=== PATIENT | male | born 1955 | race Caucasian/White ===

== ENCOUNTER 2018-04-22 09:38 | Day surgery (SDC) | payer MEDICAID, SELFPAY ==
--- NOTE | 2018-04-21 15:47 | W.PIPPEYE ---
History of Present Illness Chief Complaint: Progressive decreased vision, left eye Narrative: The patient is a 62-year old male who has previously undergone cataract surgery in the right eye on 06/15/2009. He has uncorrected visual acuity of 20/20 in the right eye. He presented with complaints of progressive decreased vision in his left eye. He notes decreased vision at both distance and near and has significant difficulty with glare from headlights at night. On examination visual acuity was noted to be 20/100 in the left eye in the presence of moderate nuclear cataract. The option of cataract surgery was offered to the patient and he wished to proceed. NOTE: The Chief Complaint, HPI, Past Medical History, Past Surgical History, Family History, Social History, Medications, and complete Ophthalmic Exam with detailed Assessment and Plan have already been documented in the patient's outpatient ophthalmic record and are not covered again in detail here. PFSH Nuclear sclerotic cataract of left eye (Acute) Status post cataract extraction and insertion of intraocular lens of right eye (Chronic 06/15/09) Medical History Nuclear sclerotic cataract of left eye (Acute) Social History Smoking/Tobacco Use Status: Never Surgical History Status post cataract extraction and insertion of intraocular lens of right eye (Chronic 06/15/09) Social History Smoking/Tobacco Use Status: Never Meds Home Medications Medication Instructions Recorded Confirmed Type aspirin [Aspir-Low] 81 mg PO DAILY 04/18/18 04/18/18 History losartan 50 mg PO DAILY 04/18/18 04/18/18 History rosuvastatin [Crestor] 20 mg PO DAILY 04/18/18 04/18/18 History Allergies Allergy/AdvReac Type Severity Reaction Status Date / Time atorvastatin [From Lipitor] AdvReac Intermediate muscle Verified 04/19/18 08:02 weakness lisinopril AdvReac Intermediate cough Verified 04/19/18 08:03 Exam OCULAR EXAM:: Most recent ophthalmic examination reveals uncorrected visual acuity of 20/20 right eye, 20/100 left eye. The left eye can be corrected to 20/40. Pupils equal, round, and reactive without afferent pupillary defect intraocular pressure is 15 OD, 14 OS. Extraocular motility is normal. Slit-lamp examination is significant for pupils dilating to 6 mm OU. Well-positioned PCIOL OD with 1+ posterior capsular opacity. 2+ nuclear cataract is present OS. Dilated funduscopic examination reveals disc cupping of 0.2 OU with good color. The macula's are normal. Vitreous floaters are present OU. The peripheral retina shows some lattice degeneration. BRIGHTNESS ACUITY TESTING (BAT):: Brightness acuity testing of the left eye of is 20/40. Low is 20/100. Medium is 20/200. High is 20/400. Assessment and Plan (1) Nuclear sclerotic cataract of left eye: Current visit: No Status: Acute Assessment: Visually significant cataract, left eye. Plan: Cataract extraction with intraocular lens implantation, left eye Note: NOTE:: The details of the planned surgery, including the risks, indications,limitations,expectations,outcome and possible complications were explained to the patient. The patient understands the complications including, but not limited to: infection, hemorrhage, posterior dislocation of the lens or nuclear fragments which may require the intervention of a vitreoretinal surgeon, possible loss of the eye, or from anesthetic complications. The patient has been made aware of the option of not having surgery, that vision following surgery may not be equal to that prior to surgery, and that the planned surgery may not achieve the intended results. Following this discussion, which the patient appeared to understand, the patient wishes to proceed with cataract surgery with lens implantation of the affected eye to improve and maximize vision.
--- NOTE | 2018-04-21 15:53 | POEE_ITS ---
History of Present Illness Chief Complaint: Progressive decreased vision, left eye Narrative: The patient is a 62-year old male who has previously undergone cataract surgery in the right eye on 06/15/2009. He has uncorrected visual acuity of 20/20 in the right eye. He presented with complaints of progressive decreased vision in his left eye. He notes decreased vision at both distance and near and has significant difficulty with glare from headlights at night. On examination visual acuity was noted to be 20/100 in the left eye in the presence of moderate nuclear cataract. The option of cataract surgery was offered to the patient and he wished to proceed. NOTE: The Chief Complaint, HPI, Past Medical History, Past Surgical History, Family History, Social History, Medications, and complete Ophthalmic Exam with detailed Assessment and Plan have already been documented in the patient's outpatient ophthalmic record and are not covered again in detail here. PFSH Nuclear sclerotic cataract of left eye (Acute) Status post cataract extraction and insertion of intraocular lens of right eye ( Chronic 06/15/09) Medical History Nuclear sclerotic cataract of left eye (Acute) Social History Smoking/Tobacco Use Status: Never Surgical History Status post cataract extraction and insertion of intraocular lens of right eye ( Chronic 06/15/09) Social History Smoking/Tobacco Use Status: Never Meds Home Medications Medication Instructions Recorded Confirmed Type aspirin [Aspir-Low] 81 mg PO DAILY 04/18/18 04/18/18 History losartan 50 mg PO DAILY 04/18/18 04/18/18 History rosuvastatin [Crestor] 20 mg PO DAILY 04/18/18 04/18/18 History Allergies Allergy/AdvReac Type Severity Reaction Status Date / Time atorvastatin [From Lipitor] AdvReac Intermediate muscle Verified 04/19/18 08:02 weakness lisinopril AdvReac Intermediate cough Verified 04/19/18 08:03 Exam OCULAR EXAM:: Most recent ophthalmic examination reveals uncorrected visual acuity of 20/20 right eye, 20/100 left eye. The left eye can be corrected to 20 /40. Pupils equal, round, and reactive without afferent pupillary defect intraocular pressure is 15 OD, 14 OS. Extraocular motility is normal. Slit- lamp examination is significant for pupils dilating to 6 mm OU. Well- positioned PCIOL OD with 1+ posterior capsular opacity. 2+ nuclear cataract is present OS. Dilated funduscopic examination reveals disc cupping of 0.2 OU with good color. The macula's are normal. Vitreous floaters are present OU. The peripheral retina shows some lattice degeneration. BRIGHTNESS ACUITY TESTING (BAT):: Brightness acuity testing of the left eye of is 20/40. Low is 20/100. Medium is 20/200. High is 20/400. Assessment and Plan (1) Nuclear sclerotic cataract of left eye: Current visit: No Status: Acute Assessment: Visually significant cataract, left eye. Plan: Cataract extraction with intraocular lens implantation, left eye Note: NOTE:: The details of the planned surgery, including the risks, indications, limitations,expectations,outcome and possible complications were explained to the patient. The patient understands the complications including, but not limited to: infection, hemorrhage, posterior dislocation of the lens or nuclear fragments which may require the intervention of a vitreoretinal surgeon, possible loss of the eye, or from anesthetic complications. The patient has been made aware of the option of not having surgery, that vision following surgery may not be equal to that prior to surgery, and that the planned surgery may not achieve the intended results. Following this discussion, which the patient appeared to understand, the patient wishes to proceed with cataract surgery with lens implantation of the affected eye to improve and maximize vision.
[2018-04-22 10:08] VITALS: BP 146/103; PULSE 75; RESP 16; TEMP 35.9; O2SAT 95
[2018-04-22] MEDS: Tetracaine 0.5% 4 ML BTL OS ×4 (10:18→11:00)
[2018-04-22] MEDS: Tropicam./Phenyleph. (1/2.5%) 5 ML BTL OS ×3 (10:19→10:25)
[2018-04-22] MEDS: Povidone-Iodine Ophth 30 ML BTL (11:00)
[2018-04-22] MEDS: Lidocaine 2% Jelly 6 ML SYR (11:00)
[2018-04-22] MEDS: Lidocaine 1% Pres-Free 5 ML VIAL (11:11)
[2018-04-22] MEDS: Balanced Salt Soln.-PLUS 500 ML BAG ×2 (11:11→11:29)
--- NOTE | 2018-04-22 11:47 | W.PM.DSUDISC ---
Discharge Plan Discharge Details Reason For Visit: CATARACT OS Attending Provider: Mustapha Haider Primary Care Provider: Jacob Francois Home Meds and New Rx's Prescriptions: No Action losartan 50 mg Tablet 50 mg PO DAILY RF: 0 aspirin [Aspir-Low] 81 mg Tablet,Delayed Release (Dr/Ec) 81 mg PO DAILY RF: 0 rosuvastatin [Crestor] 20 mg Tablet 20 mg PO DAILY RF: 0 Discharge Instructions Stand Alone Forms: Post-op Topical Cataract, Amirah Ogden (DSU) DS: Diagnosis Discharge Diagnosis (1) Nuclear sclerotic cataract of left eye: Status: Resolved (2) Status post cataract extraction and insertion of intraocular lens of left eye: Status: Chronic
--- NOTE | 2018-04-22 11:48 | W.PM.OP ---
Date of service: 04/22/18 Time of Service: 11:48 Operative Note DATE OF PROCEDURE: 04/22/18 PRE-OP DIAGNOSIS: Cataract, left eye POST-OP DIAGNOSIS: same PROCEDURE: Cataract extraction using phacoemulsification with intraocular lens implant, left eye SURGEON: Mustapha Haider ANESTHESIA: MAC and local (sub-tenon's anesthetic infiltration) PATHOLOGY: none sent COMPLICATIONS: None Patient was transported to: same day Patient's condition: stable Implants: Teo and Teo Vision / [employer] Tecnis [id number] Indications: Progressive decreased vision due to cataract, left eye Procedure Description: CATARACT SURGERY OPERATIVE REPORT PREOPERATIVE DIAGNOSIS: Nuclear cataract, left eye, symptomatic POSTOPERATIVE DIAGNOSIS: Same OPERATION: Cataract extraction using phacoemulsification with posterior chamber intraocular lens implant, left eye. IOL: IOL Customer Energy Specialist/Model: J&J Vision / YONATAN Tecnis ZCB00 IOL Power: +20.50 diopters IOL Serial Number: [id number] Optic Diameter: 6.0mm Haptic/Overall Diameter: 13.0mm PHACO INFO: Herson uSpeakurion Vision System with OZil and Active Fluidics Cumulative Dispersed Energy (CDE): 8.34 seconds SURGEON: Mustapha Haider MD, ROSSY ANESTHESIA: Monitored Anesthesia Care (MAC), with local sub-tenon's anesthetic infiltration COMPLICATIONS: None SPECIMENS: None INDICATIONS FOR PROCEDURE: The patient is a 62-year-old male who has previously undergone cataract surgery in his right eye in 2009. He has now developed asymptomatic nuclear cataract in his left eye and desires cataract surgery to improve and maximize his vision. PROCEDURE: The correct surgical eye was identified and marked as the left eye and the pupil was dilated in the preoperative area using mydriatics and cycloplegics. The dilated pupil size was 6.0 mm. Oral sedation was administered in the form of an Imprimis MKO Melt (midazolam 3mg/ketamine 25mg/ondansetron 2mg). The patient was brought to the operating room where cardiopulmonary monitoring was instituted and surgical time-out was performed, confirming the correct operative eye and IOL power. Topical anesthesia was administered and ophthalmic povidone-iodine 5% was instilled into the conjunctival fornices. Lidocaine gel was applied to the cornea and the taran-ocular area was prepped with Betadine 10% solution and draped in the usual sterile fashion for intraocular surgery, including an aperture drape. A Tegaderm transparent film dressing was cut in half and used to cover the lashes and lid margins. Care was taken to sequester the lashes and lid margins under the Tegaderm dressing. A lid speculum was placed between the lids of the operative eye and the James-Ayla operating microscope was maneuvered into position. Jany scissors were then used to make a conjunctival buttonhole approximately 6mm posterior to the limbus in the inferonasal quadrant. Blunt dissection was carried out to expose bare sclera, and a blunt-tipped sub-tenon?s anesthesia cannula was introduced and passed posteriorly along the globe where non-preserved plain lidocaine was injected into posterior sub-Tenon?s space. A sideport knife was used to make a paracentesis port at the 12:00 postion and the anterior chamber was filled with Healon GV. A 2.4mm keratome knife was used to create a half-thickness groove at the limbus and then to construct a three-plane near-clear corneal tunnel extending 2.0mm into clear cornea at the 3:00 position. A flap was raised on the anterior capsule and capsulorhexis forceps were used to complete a continuous curvilinear capsulorhexis of 5.0 mm. Balanced salt solution was then used to perform cortical cleaving hydrodissection and nuclear hydrodelineation until the lens could be freely rotated within the capsular bag. The lens nucleus was then disassembled and removed within the capsular bag and iris plane using phacoemulsification. The phaco machine cassette was changed in the middle of phacoemulsification due to failure of the fluidics management system (FMS). The view through the cornea during phacoemulsification was very hazy. The pupil constricted to 4 mm during phacoemulsification, making visualization difficult. Residual cortical material was removed using the 45-degree angled silicone I/A tip with 0.3mm port. The posterior capsule was carefully polished to remove as much residual lens epithelial cells as safely possible. The capsular bag was then inflated and the anterior chamber deepened with viscoelastic. The lens implant described above was inserted into the capsular bag using the YONATAN [place] Injector. A Kuglen hook was used to dial the IOL into position. Residual viscoelastic was then removed first from posterior to the IOL, then from the anterior chamber using the I/A handpiece. The lens implant was noted to center nicely within the capsular bag. The incisions were stromally hydrated, and the anterior chamber was reformed using BSS. Then 0.4cc of moxifloxacin 1.5mg/ml were injected into the capsular bag and anterior chamber. The incisions were checked with a Weck spear and found to be secure. Several drops of ophthalmic povidone-iodine 5% were then applied to the eye followed by two drops of Imprimis combination moxifloxacin/dexamethasone solution. The drapes were removed and a clear plastic protective eye shield was placed over the eye. The patient was then returned to Same Day Surgery in stable condition.
--- NOTE | 2018-04-22 11:53 | ROE_ITS ---
Date of service: 04/22/18 Time of Service: 11:48 Operative Note DATE OF PROCEDURE: 04/22/18 PRE-OP DIAGNOSIS: Cataract, left eye POST-OP DIAGNOSIS: same PROCEDURE: Cataract extraction using phacoemulsification with intraocular lens implant, left eye SURGEON: Mustapha Haider ANESTHESIA: MAC and local (sub-tenon's anesthetic infiltration) PATHOLOGY: none sent COMPLICATIONS: None Patient was transported to: same day Patient's condition: stable Implants: Teo and Teo Vision / [employer] Opt[employer] Tecnis [id number] Indications: Progressive decreased vision due to cataract, left eye Procedure Description: CATARACT SURGERY OPERATIVE REPORT PREOPERATIVE DIAGNOSIS: Nuclear cataract, left eye, symptomatic POSTOPERATIVE DIAGNOSIS: Same OPERATION: Cataract extraction using phacoemulsification with posterior chamber intraocular lens implant, left eye. IOL: IOL Credit Officer/Model: J&J Vision / YONATAN Tecnis ZCB00 IOL Power: +20.50 diopters IOL Serial Number: [id number] Optic Diameter: 6.0mm Haptic/Overall Diameter: 13.0mm PHACO INFO: Herson LANDBAYurion Vision System with OZil and Active Fluidics Cumulative Dispersed Energy (CDE): 8.34 seconds SURGEON: Mustapha Haider MD, ROSSY ANESTHESIA: Monitored Anesthesia Care (MAC), with local sub-tenon's anesthetic infiltration COMPLICATIONS: None SPECIMENS: None INDICATIONS FOR PROCEDURE: The patient is a 62-year-old male who has previously undergone cataract surgery in his right eye in 2009. He has now developed asymptomatic nuclear cataract in his left eye and desires cataract surgery to improve and maximize his vision. PROCEDURE: The correct surgical eye was identified and marked as the left eye and the pupil was dilated in the preoperative area using mydriatics and cycloplegics. The dilated pupil size was 6.0 mm. Oral sedation was administered in the form of an Imprimis MKO Melt (midazolam 3mg/ketamine 25mg/ ondansetron 2mg). The patient was brought to the operating room where cardiopulmonary monitoring was instituted and surgical time-out was performed, confirming the correct operative eye and IOL power. Topical anesthesia was administered and ophthalmic povidone-iodine 5% was instilled into the conjunctival fornices. Lidocaine gel was applied to the cornea and the taran-ocular area was prepped with Betadine 10% solution and draped in the usual sterile fashion for intraocular surgery, including an aperture drape. A Tegaderm transparent film dressing was cut in half and used to cover the lashes and lid margins. Care was taken to sequester the lashes and lid margins under the Tegaderm dressing. A lid speculum was placed between the lids of the operative eye and the James-Ayla operating microscope was maneuvered into position. Jany scissors were then used to make a conjunctival buttonhole approximately 6mm posterior to the limbus in the inferonasal quadrant. Blunt dissection was carried out to expose bare sclera, and a blunt-tipped sub-tenon? s anesthesia cannula was introduced and passed posteriorly along the globe where non-preserved plain lidocaine was injected into posterior sub-Tenon?s space. A sideport knife was used to make a paracentesis port at the 12:00 postion and the anterior chamber was filled with Healon GV. A 2.4mm keratome knife was used to create a half-thickness groove at the limbus and then to construct a three-plane near-clear corneal tunnel extending 2.0mm into clear cornea at the 3:00 position. A flap was raised on the anterior capsule and capsulorhexis forceps were used to complete a continuous curvilinear capsulorhexis of 5.0 mm. Balanced salt solution was then used to perform cortical cleaving hydrodissection and nuclear hydrodelineation until the lens could be freely rotated within the capsular bag. The lens nucleus was then disassembled and removed within the capsular bag and iris plane using phacoemulsification. The phaco machine cassette was changed in the middle of phacoemulsification due to failure of the fluidics management system (FMS). The view through the cornea during phacoemulsification was very hazy. The pupil constricted to 4 mm during phacoemulsification, making visualization difficult. Residual cortical material was removed using the 45-degree angled silicone I/A tip with 0.3mm port. The posterior capsule was carefully polished to remove as much residual lens epithelial cells as safely possible. The capsular bag was then inflated and the anterior chamber deepened with viscoelastic. The lens implant described above was inserted into the capsular bag using the YONATAN [place] Injector. A Kuglen hook was used to dial the IOL into position. Residual viscoelastic was then removed first from posterior to the IOL, then from the anterior chamber using the I/A handpiece. The lens implant was noted to center nicely within the capsular bag. The incisions were stromally hydrated , and the anterior chamber was reformed using BSS. Then 0.4cc of moxifloxacin 1.5mg/ml were injected into the capsular bag and anterior chamber. The incisions were checked with a Weck spear and found to be secure. Several drops of ophthalmic povidone-iodine 5% were then applied to the eye followed by two drops of Imprimis combination moxifloxacin/dexamethasone solution. The drapes were removed and a clear plastic protective eye shield was placed over the eye. The patient was then returned to Same Day Surgery in stable condition.
[2018-04-22 12:00] VITALS: BP 133/81; PULSE 71; RESP 18; TEMP 37.2; O2SAT 94
== END 2018-04-22 12:15 | disposition home or self-care (01) ==
PROVIDERS: PCP Family Medicine; Visit Provider Ophthalmology
PROC: (CPT 66984; principal; 2018-04-22 11:45)
DX: H25.12 Age-related nuclear cataract, left eye (principal); I10 Essential (primary) hypertension
CPT/HCPCS: 66984; V2632

== ENCOUNTER 2018-10-16 09:08 | Outpatient (REF) | payer MEDICARE, MEDICAID, SELFPAY ==
[2018-10-16 22:44] LABS: ALT 41 U/L (12-78); AST 29 U/L (15-37); Alkaline Phosphatase 116 U/L (46-116); BUN 25 mg/dL (7-18); Bilirubin, Total 0.8 mg/dL (0.2-1.0); CREATININE 0.93 mg/dL (0.70-1.30); Calcium 9.2 mg/dL (8.5-10.1); Chloride 103 mmol/L (98-107); Cholesterol 221 mg/dL (50-200); Glucose 94 mg/dL (70-100); HDL Cholesterol 71 mg/dL (40-60); LDL CHOLESTEROL 125 mg/dL (<100); Potassium 5.1 mmol/L (3.5-5.1); Sodium 139 mmol/L (136-145); Total Protein 7.3 g/dL (6.4-8.2); Triglyceride 75 mg/dL (30-150)
[2018-10-16 23:14] LABS: Hemoglobin A1C 5.9 % (4.5-6.2)
[2018-10-18 08:48] LABS: PSA, Screening 0.5 ng/ml (0-4.5)
== END 2018-10-16 09:28 ==
LOC: NCHCN 09:08
PROVIDERS: PCP Family Medicine; Visit Provider Family Medicine
DX: E78.5 Hyperlipidemia, unspecified (principal); R73.01 Impaired fasting glucose; Z12.5 Encounter for screening for malignant neoplasm of prostate; Z00.00 Encounter for general adult medical examination without abnormal findings
CPT/HCPCS: 80053; 80061; 83721; 84153; 83036

== ENCOUNTER 2019-01-09 15:31 | Outpatient (REF) | payer MEDICARE, MEDICAID, SELFPAY ==
[2019-01-13 11:16] LABS: Lyme Ab w Rflx to Lyme Confirm Negative
[2019-01-13 17:29] LABS: Anaplasma phagocytophilum Negative (Negative); B. miyamotoi PCR Negative (Negative); Babesia divergens/MO-1 Negative (Negative); Babesia duncani Negative (Negative); Babesia microti Negative (Negative); Ehrlichia chaffeensis Negative (Negative); Ehrlichia ewingii/canis Negative (Negative); Ehrlichia muris eauclairensis Negative (Negative)
== END 2019-01-09 15:51 ==
LOC: NCHCN 15:31
PROVIDERS: PCP Family Medicine; Visit Provider Nurse Practitioner Family
DX: M25.569 Pain in unspecified knee (principal)
CPT/HCPCS: 87798; 86618

== ENCOUNTER 2020-01-13 10:12 | Outpatient (REF) | payer OTHER, MEDICAID, SELFPAY ==
[2020-01-13 21:32] LABS: ALT 40 U/L (16-63); AST 28 U/L (15-37); Albumin 4.1 g/dL (3.4-5.0); Alkaline Phosphatase 99 U/L (46-116); Anion Gap 3.5 mmol/L (3-11); BUN 26 mg/dL (7-18); Bilirubin, Total 0.8 mg/dL (0.2-1.0); CO2 28.5 mmol/L (21.0-32.0); CREATININE 0.88 mg/dL (0.70-1.30); Calcium 8.8 mg/dL (8.5-10.1); Calculated LDL 123 mg/dL (<100); Chloride 107 mmol/L (98-107); Cholesterol 209 mg/dL (<200); Glucose 91 mg/dL (74-106); HDL Cholesterol 76 mg/dL (40-60); Potassium 4.6 mmol/L (3.5-5.1); Sodium 139 mmol/L (136-145); Total Protein 7.1 g/dL (6.4-8.2); Triglyceride 52 mg/dL (<150)
[2020-01-14 10:14] LABS: Hemoglobin A1C 5.8 % (3.8-5.6)
[2020-01-14 17:43] LABS: PSA, Screening 0.5 ng/mL (0.0-4.5)
== END 2020-01-13 10:32 ==
LOC: NCHCN 10:12
PROVIDERS: PCP Family Medicine; Visit Provider Family Medicine
DX: R73.03 Prediabetes (principal); I10 Essential (primary) hypertension; E78.5 Hyperlipidemia, unspecified; Z12.5 Encounter for screening for malignant neoplasm of prostate
CPT/HCPCS: 80053; 80061; 84153; 83036

== ENCOUNTER 2020-03-02 08:51 | Outpatient (REF) | payer OTHER, SELFPAY ==
[2020-03-02 22:44] LABS: ALT 39 U/L (16-63); AST 24 U/L (15-37); Albumin 4.1 g/dL (3.4-5.0); Alkaline Phosphatase 96 U/L (46-116); Bilirubin, Total 0.6 mg/dL (0.2-1.0); Calculated LDL 125 mg/dL (<100); Cholesterol 215 mg/dL (<200); HDL Cholesterol 73 mg/dL (40-60); Total Protein 7.3 g/dL (6.4-8.2); Triglyceride 86 mg/dL (<150)
[2020-03-02 23:17] LABS: Bilirubin, Direct 0.15 mg/dL (0.00-0.20)
== END 2020-03-02 09:11 ==
LOC: NCHCN 08:51
PROVIDERS: PCP Family Medicine; Visit Provider Family Medicine
DX: E78.5 Hyperlipidemia, unspecified (principal); B35.1 Tinea unguium
CPT/HCPCS: 80061; 80076

== ENCOUNTER 2020-06-22 15:25 | Outpatient (REF) | payer OTHER, SELFPAY ==
[2020-06-22 13:22] LABS: Calculated LDL 125 mg/dL (<100); Cholesterol 206 mg/dL (<200); HDL Cholesterol 66 mg/dL (40-60); Triglyceride 76 mg/dL (<150)
== END 2020-06-22 15:26 | disposition home or self-care (01) ==
LOC: NCHCN 15:25
PROVIDERS: PCP Family Medicine; Visit Provider Family Medicine
DX: E78.5 Hyperlipidemia, unspecified (principal)
CPT/HCPCS: 80061

== ENCOUNTER 2020-09-01 07:43 | Outpatient (REF) | payer OTHER, SELFPAY ==
[2020-09-01 13:40] LABS: Calculated LDL 105 mg/dL (<100); Cholesterol 187 mg/dL (<200); HDL Cholesterol 68 mg/dL (40-60); Triglyceride 71 mg/dL (<150)
== END 2020-09-01 07:44 | disposition home or self-care (01) ==
LOC: NCHCN 07:43
PROVIDERS: PCP Family Medicine; Visit Provider Family Medicine
DX: E78.5 Hyperlipidemia, unspecified (principal); Z51.81 Encounter for therapeutic drug level monitoring
CPT/HCPCS: 80061

== ENCOUNTER 2021-01-11 15:32 | Outpatient (REF) | payer OTHER, SELFPAY ==
[2021-01-11 17:07] LABS: Hemoglobin A1C 6.1 % (<5.7)
[2021-01-11 17:11] LABS: ALT 36 U/L (16-63); AST 25 U/L (15-37); Alkaline Phosphatase 98 U/L (46-116); Anion Gap 7.2 mmol/L (3-11); BUN 24 mg/dL (7-18); Bilirubin, Total 0.7 mg/dL (0.2-1.0); CO2 27.8 mmol/L (21.0-32.0); CREATININE 0.9 mg/dL (0.70-1.30); Calcium 8.8 mg/dL (8.5-10.1); Chloride 106 mmol/L (98-107); Glucose 90 mg/dL (74-106); Potassium 4.8 mmol/L (3.5-5.1); Sodium 141 mmol/L (136-145); Total Protein 7.2 g/dL (6.4-8.2)
[2021-01-12 17:58] LABS: PSA, Screening 0.7 ng/mL (0.0-4.5)
== END 2021-01-11 15:33 | disposition home or self-care (01) ==
LOC: NCHCN 15:32
PROVIDERS: PCP Family Medicine; Visit Provider Family Medicine
DX: R73.03 Prediabetes (principal); Z12.5 Encounter for screening for malignant neoplasm of prostate; Z51.81 Encounter for therapeutic drug level monitoring
CPT/HCPCS: 80053; 84153; 83036

== ENCOUNTER 2022-01-20 08:14 | Outpatient (REF) | payer OTHER, SELFPAY ==
[2022-01-20 21:23] LABS: Hemoglobin A1C 5.9 % (<5.7)
[2022-01-20 21:26] LABS: ALT 32 U/L (16-63); AST 23 U/L (15-37); Albumin 4.2 g/dL (3.4-5.0); Alkaline Phosphatase 105 U/L (46-116); BUN 31 mg/dL (7-18); Bilirubin, Total 0.8 mg/dL (0.2-1.0); CREATININE 0.9 mg/dL (0.70-1.30); Calculated LDL 127 mg/dL (<100); Chloride 105 mmol/L (98-107); Cholesterol 214 mg/dL (<200); Estimated GFR 93.03 (mL/min/1.73m2); Glucose 100 mg/dL (74-106); HDL Cholesterol 72 mg/dL (40-60); Potassium 4.9 mmol/L (3.5-5.1); Sodium 141 mmol/L (136-145); Total Protein 7.5 g/dL (6.4-8.2); Triglyceride 78 mg/dL (<150)
[2022-01-23 10:18] LABS: PSA, Screening 0.6 ng/mL (<=4.5)
== END 2022-01-20 08:15 | disposition home or self-care (01) ==
LOC: NCHCN 08:14
PROVIDERS: PCP Family Medicine; Visit Provider Family Medicine
DX: R73.03 Prediabetes (principal); E78.5 Hyperlipidemia, unspecified; Z12.5 Encounter for screening for malignant neoplasm of prostate; I10 Essential (primary) hypertension
CPT/HCPCS: 80053; 80061; 84153; 83036

== ENCOUNTER 2022-03-08 17:04 | Outpatient (REF) | payer MEDICARE, SELFPAY ==
[2022-03-08 21:13] LABS: Anion Gap 8.4 mmol/L (3-11); BUN 22 mg/dL (7-18); CO2 25.6 mmol/L (21.0-32.0); CREATININE 0.9 mg/dL (0.70-1.30); Chloride 103 mmol/L (98-107); Estimated GFR 93.03 (mL/min/1.73m2); Glucose 83 mg/dL (74-106); Potassium 4.3 mmol/L (3.5-5.1); Sodium 137 mmol/L (136-145)
== END 2022-03-08 17:05 | disposition home or self-care (01) ==
LOC: NCHCN 17:04
PROVIDERS: PCP Family Medicine; Visit Provider Family Medicine
DX: R25.2 Cramp and spasm (principal)
CPT/HCPCS: 80048

== ENCOUNTER 2022-03-24 15:12 | Outpatient (REF) | payer MEDICARE, SELFPAY ==
[2022-03-24 16:12] LABS: Anion Gap 6.3 mmol/L (3-11); BUN 30 mg/dL (7-18); CO2 28.7 mmol/L (21.0-32.0); Calcium 9.2 mg/dL (8.5-10.1); Chloride 105 mmol/L (98-107); Estimated GFR 81.98 (mL/min/1.73m2); Glucose 99 mg/dL (74-106); Potassium 4.4 mmol/L (3.5-5.1); Sodium 140 mmol/L (136-145)
== END 2022-03-24 15:13 | disposition home or self-care (01) ==
LOC: NCHCN 15:12
PROVIDERS: PCP Family Medicine; Visit Provider Family Medicine
DX: I10 Essential (primary) hypertension (principal)
CPT/HCPCS: 80048

== ENCOUNTER 2022-12-26 08:45 | Outpatient (REF) | payer MEDICARE, SELFPAY ==
--- OUTSIDE RECORDS SUMMARY | 2022-12-26 08:48 | XMS_ITS | CCD ---
Author Name Unknown Address [address] [place] [address] [phone] Organization Unknown Address [address] [place] [address] [phone] Care Team Providers Care Fence Post Driver Name Role Phone STALIN FALL Attending Physician [phone] SUKHJINDER FISHER Er Physician 6 [phone] MOLLY Morgan Registered Nurse [phone] Vital Signs Vital Sign Value Unit Date/Time Recent/Initial ? BMI (Body Mass Index) 27.89 kg/m^2 12/02/2021 10: 00 Initial VS Weight Measured 200 lbs 12/02/2021 10:00 Ini tial VS Height 71 in 12/02/2021 10:00 Initial VS BSA (Body Surface Area) 2.13 m^2 12/02/2021 1 0:00 Initial VS BP Systolic 153 mmHg 12/02/2021 10:00 Initial VS BP Diastolic 98 mmHg 12/02/2021 10:00 Initia l VS Respiratory Rate 19 bpm 12/02/2021 10:00 In itial VS Heart Rate 66 bpm 12/02/2021 10:00 Initial VS O2 % BldC Oximetry 98 % 12/02/2021 10:00 Initial VS Body Temperature 35.5 degrees 12/02/2021 10:00 In itial VS Allergies Allergy Code Allergy Type Reaction Status LISINOPRIL 94783 Drug allergy COUGH Active CEDAR SAWDUST {Clinical monitoring unavailable} 0 Drug allergy COUGHING Active Procedures Unknown or Not Available. History of Immunizations Unknown or Not Available. Problems Problem Code Start Date Resolved Date Status Cataract [id number] 12/02/2021 Resolved Results Unknown or Not Available. Active Medications Unknown or Not Available. Medications Administered During Visit Unknown or Not Available. Encounters Encounter Diagnosis Diagnosis Code Start Date Closed fracture sacrum [id number] Social History Smoking Status Code Start Date End Date Never smoker [id number] Patient Decision Aids Unknown or Not Available. Discharge Instructions You were admitted to [facility] on 12/02/2021 09:37 with a principal diagnosis of Unspecified fracture of sacrum, initial encounter for closed fracture You were discharged from [facility] on 12/02/2021 12:48 Should you have any questions prior to discharge, please contact a member of your healthcare team. If you have left the hospital and have any questions, please contact your primary care physician. Chief Complaint and Reason For Visit Chief Complaint Date of Onset FELL OFF LADDER ONTO CEMENT Function Status Unknown or Not Available. Plan of Care Unknown or Not Available. Referral/Transition of Care Unknown or Not Available.
--- OUTSIDE RECORDS SUMMARY | 2022-12-26 08:48 | XMS_ITS | CCD ---
Author Name Unknown Address [address] [place] [address] [phone] Organization Unknown Address [address] [place] [address] [phone] Care Team Providers Care Telecommunications Network Planner Name Role Phone EREN ROSARIO Attending Physician [phone] Vital Signs Unknown or Not Available. Allergies Allergy Code Allergy Type Reaction Status LISINOPRIL 49753 Drug allergy COUGH Active CEDAR SAWDUST {Clinical monitoring unavailable} 0 Drug allergy COUGHING Active Procedures Unknown or Not Available. History of Immunizations Unknown or Not Available. Problems Unknown or Not Available. Results Unknown or Not Available. Active Medications Unknown or Not Available. Medications Administered During Visit Unknown or Not Available. Encounters Encounter Diagnosis Diagnosis Code Start Date Complete rotator cuff tear o r rupture of right shoulder, not specified as traumatic [id number] 01/11/2022 Social History Smoking Status Code Start Date End Date Never smoker [id number] Patient Decision Aids Unknown or Not Available. Discharge Instructions You were admitted to [facility] on 01/11/2022 10:43 with a principal diagnosis of Complete rotator cuff tear or rupture of right shoulder, not specified as traumatic You were discharged from [facility] on 01/11/2022 10:43 Should you have any questions prior to discharge, please contact a member of your healthcare team. If you have left the hospital and have any questions, please contact your primary care physician. Chief Complaint and Reason For Visit Chief Complaint Date of Onset SHOULDER JOINT Function Status Unknown or Not Available. Plan of Care Unknown or Not Available. Referral/Transition of Care Unknown or Not Available.
--- OUTSIDE RECORDS SUMMARY | 2022-12-26 08:48 | XMS_ITS | CCD ---
Author Name Unknown Address [address] [place] [address] [id number] Organization Unknown Address [address] [place], [place] [id number] Care Team Providers Care Still Worker Helper Name Role Phone ELINOR DEY Attending Physician [phone] ELINOR DEY Rounding (Secondary) Physician [phone] Vital Signs Unknown or Not Available. Allergies Allergy Code Allergy Type Reaction Status LISINOPRIL 47041 Drug allergy COUGH Active CEDAR SAWDUST {Clinical monitoring unavailable} 0 Drug allergy COUGHING Active Procedures Unknown or Not Available. History of Immunizations Unknown or Not Available. Problems Unknown or Not Available. Results Unknown or Not Available. Active Medications Unknown or Not Available. Medications Administered During Visit Unknown or Not Available. Encounters Encounter Diagnosis Diagnosis Code Start Date Postprocedural state finding [id number] Social History Smoking Status Code Start Date End Date Never smoker [id number] Patient Decision Aids Unknown or Not Available. Discharge Instructions You were admitted to [facility] on 08/14/2022 13:24 with a principal diagnosis of Other specified postprocedural states You were discharged from [facility] on 08/14/2022 00:00 Should you have any questions prior to discharge, please contact a member of your healthcare team. If you have left the hospital and have any questions, please contact your primary care physician. Chief Complaint and Reason For Visit Unknown or Not Available. Function Status Unknown or Not Available. Plan of Care Unknown or Not Available. Referral/Transition of Care Unknown or Not Available.
--- OUTSIDE RECORDS SUMMARY | 2022-12-26 08:48 | XMS_ITS | CCD ---
Author Name Unknown Address [address] [place] [address] [phone] Organization Unknown Address [address] [place] [address] [phone] Care Team Providers Care Radiologic Electronic Specialist Name Role Phone AVI CULLEN Attending Physician [phone] AVI CULLEN Rounding (Secondary) Physician [phone] Vital Signs Unknown or Not Available. Allergies Allergy Code Allergy Type Reaction Status LISINOPRIL 94139 Drug allergy COUGH Active CEDAR SAWDUST {Clinical monitoring unavailable} 0 Drug allergy COUGHING Active Procedures Unknown or Not Available. History of Immunizations Unknown or Not Available. Problems Unknown or Not Available. Results Unknown or Not Available. Active Medications Unknown or Not Available. Medications Administered During Visit Unknown or Not Available. Encounters Encounter Diagnosis Diagnosis Code Start Date Full thickness rotator cuff tear [id number] 02/06/2022 Social History Smoking Status Code Start Date End Date Never smoker [id number] Patient Decision Aids Unknown or Not Available. Discharge Instructions You were admitted to [facility] on 02/06/2022 15:24 with a principal diagnosis of Complete rotator cuff tear or rupture of right shoulder, not specified as traumatic You were discharged from [facility] on 02/06/2022 00:00 Should you have any questions prior [...]
--- OUTSIDE RECORDS SUMMARY | 2022-12-26 08:48 | XMS_ITS | CCD ---
Author Name Unknown Address [address] [place] [address] [id number] Organization Unknown Address [address] [place] [address] [phone] Care Team Providers Care Fibre Technologist Name Role Phone AVI CULLEN Attending Physician [phone] Vital Signs Unknown or Not Available. Allergies Allergy Code Allergy Type Reaction Status LISINOPRIL 61359 Drug allergy COUGH Active CEDAR SAWDUST {Clinical monitoring unavailable} 0 Drug allergy COUGHING Active Procedures Unknown or Not Available. History of Immunizations Unknown or Not Available. Problems Unknown or Not Available. Results Unknown or Not Available. Active Medications Unknown or Not Available. Medications Administered During Visit Unknown or Not Available. Encounters Unknown or Not Available. Social History Smoking Status Code Start Date End Date Never smoker [id number] Patient Decision Aids Unknown or Not Available. Discharge Instructions You were admitted to [facility] on 03/29/2022 07:30 You were discharged from [facility] on 03/29/2022 07:30 Should you have any questions prior to [...]
--- OUTSIDE RECORDS SUMMARY | 2022-12-26 08:49 | XMS_ITS | CCD ---
Author Name Unknown Address [address] [place] [address] [phone] Organization Unknown Address [address] [place] [address] [phone] Care Team Providers Care Advanced Seal Delivery System Name Role Phone AVI CULLEN Attending Physician [phone] Vital Signs Unknown or Not Available. Allergies Allergy Code Allergy Type Reaction Status LISINOPRIL 18620 Drug allergy COUGH Active CEDAR SAWDUST {Clinical monitoring unavailable} 0 Drug allergy COUGHING Active Procedures Unknown or Not Available. History of Immunizations Unknown or Not Available. Problems Unknown or Not Available. Results Unknown or Not Available. Active Medications Unknown or Not Available. Medications Administered During Visit Unknown or Not Available. Encounters Encounter Diagnosis Diagnosis Code Start Date Encounter for other orthopedic aftercare [id number] 05/08/2022 Social History Smoking Status Code Start Date End Date Never smoker [id number] Patient Decision Aids Unknown or Not Available. Discharge Instructions You were admitted to [facility] on 05/08/2022 14:22 with a principal diagnosis of Encounter for other orthopedic aftercare You were discharged from [facility] on 07/24/2022 11:04 Should you have any questions prior to [...]
--- OUTSIDE RECORDS SUMMARY | 2022-12-26 08:49 | XMS_ITS | CCD ---
Author Name Unknown Address [address] [place] [address] [id number] Organization Unknown Address [address] [place], [place] [phone] Care Team Providers Care Cup Machine Operator Name Role Phone AVI CULLEN Attending Physician [phone] Vital Signs Vital Sign Value Unit Date/Time Recent/Initial ? BMI (Body Mass Index) 29.56 kg/m^2 04/05/2022 10: 34 Initial VS Weight Measured 206 lbs 04/05/2022 10:34 Ini tial VS Height 70 in 04/05/2022 10:34 Initial VS BSA (Body Surface Area) 2.15 m^2 04/05/2022 1 0:34 Initial VS BP Systolic 120 mmHg 04/19/2022 16:45 Initial VS BP Diastolic 72 mmHg 04/19/2022 16:45 Initia l VS Respiratory Rate 15 bpm 04/19/2022 16:45 In itial VS Heart Rate 89 bpm 04/19/2022 16:45 Initial VS O2 % BldC Oximetry 94 % 04/19/2022 16:45 Initial VS Body Temperature 36 degrees 04/19/2022 16:45 In itial VS Allergies Allergy Code Allergy Type Reaction Status LISINOPRIL 07307 Drug allergy COUGH Active CEDAR SAWDUST {Clinical monitoring unavailable} 0 Drug allergy COUGHING Active Procedures Procedure Code Procedure Type Date Arthroscopy, Shoulder, Surgi waqar; w/Rotator Cuff Repair 83388 CPT 04/19/2022 Tenodesis, Long Tendon, Biceps 47833 CPT 04/19/2022 Arthroscopy, Shoulder, Surgi waqar; Decompression, Subacromial Space w/Partial Acromioplasty 58189 CPT 04/19/2022 Injection Anesthetic Agent a nd/or Steroid; Brachial Plexus 23969 CPT 04/19/2022 Anesthesia, Open/Surg Arthro scopic Proc, Humeral Head & Neck, Sternoclav/AC/Shoulder Jt; NOS 53209 CPT 1 06/19/2021 History of Immunizations Unknown or Not Available. Problems Unknown or Not Available. Results BASIC METABOLIC PANEL (BMP) - Collect Date/Time: 04/19/2022 10:02 Test Name Code Test Result Test Units Test Ref Rang e GLUCOSE 2345-7 104 mg/dL L=70 H=116 BUN 3094-0 24 mg/dL L=6 H=25 CREATININE 2160-0 0.94 mg/dL L=0.67 H=1.17 SODIUM SERUM 2951-2 137 mmol/L L=136 H=145 POTASSIUM SERUM 2823-3 4.9 mmol/L L=3.4 H=5 .2 CHLORIDE SERUM 2075-0 103 mmol/L L=96 H=110 CARBON DIOXIDE (CO2) 2028-9 30 mmol/L L=22 H=34 ANION GAP 04294-8 4.4 mmol/L CALCIUM SERUM 87184-8 8.9 mg/dL L=8.2 H=10. 2 AGE 66 years eGFR (non-Afr.Amer.) 61459-4 80 mL/min eGFR (Afr-Malawian) 75786-8 97 mL/min CBC W/ DIFFERENTIAL* - [facility] ct Date/Time: 04/19/2022 10:02 Test Name Code Test Result Test Units Test Ref Rang e WBC 6690-2 5.85 th/cmm L=5.00 H=10.00 NEUT % 69.4 % L=40.0 H=80.0 LYMPH % 19.1 % L=10.0 H=50.0 MONO % 77222-7 8.7 % L=2.0 H=12.0 EOS % 2.1 % L=0.0 H=8.0 BASO % 0.5 % L=0.0 H=3.0 IG % 2514-8 0.2 % L=0.0 H=1.1 NRBC % 71807-4 0.0 % L=0.0 H=0.0 NEUT abs count 751-8 4.1 th/cmm L=1.6 H=8. 4 LYMPH abs count 731-0 1.1 th/cmm L=1.5 H=4 .0 MONO abs count 742-7 0.5 th/cmm L=0.2 H=1. 0 EOS abs count 711-2 0.1 th/cmm L=0.0 H=0.5 BASO abs count 704-7 0.0 th/cmm L=0.0 H=0. 2 IG abs count 85428-3 0.0 th/cmm L=0.0 H=0.1 NRBC abs count 80401-7 0.0 mil/cmm L=0.0 H=0. 0 RBC 789-8 4.95 mil/cmm L=4.30 H=6.20 HEMOGLOBIN 718-7 15.4 gm/dL L=13.0 H=17.0 HEMATOCRIT 4544-3 46 % L=45 H=52 MCV 787-2 93 fL L=82 H=92 MCH 785-6 31.1 pg L=27.0 H=31.0 MCHC 786-4 33.6 % L=32.0 H=36.0 RDW-SD 788-0 44.6 fL L=39.0 H=49.0 PLATELET COUNT 777-3 265 th/cmm L=150 H=45 0 Active Medications Medications Administered During Visit Medication Dose Units Frequency Route Date/Time of Last Dose LACTATED RINGERS 1000ML 1000 ML X1 04/19/2022 10:00 PREGABALIN CAPSULE: 50MG 100 MG X1 PO 04/19/2022 09:58 CELECOXIB CAPSULE: 100MG 200 MG X1 PO 04/19/2022 09:58 MIDAZOLAM INJ SDV: 2MG/2ML 2 MG X1 IVP 04/19/2022 11:57 Encounters Encounter Diagnosis Diagnosis Code Start Date Strain of muscle(s) and tend on(s) of the rotator cuff of right shoulder, initial encounter [id number] 04/19/2022 Social History Smoking Status Code Start Date End Date Never smoker [id number] Patient Decision Aids Unknown or Not Available. Discharge Instructions You were admitted to [facility] on 04/19/2022 09:21 with a principal diagnosis of Strain of muscle(s) and tendon(s) of the rotator cuff of right shoulder, initial encounter You had the following procedures done:Arthroscopy, Shoulder, Surgical; w/Rotator Cuff RepairTenodesis, Long Tendon, BicepsArthroscopy, Shoulder, Surgical; Decompression, Subacromial Space w/Partial AcromioplastyInjection Anesthetic Agent and/or Steroid; Brachial PlexusAnesthesia, Open/Surg Arthroscopic Proc, Humeral Head & Neck, Sternoclav/AC/Shoulder Jt; NOS You had the following tests done:BASIC METABOLIC PANEL (BMP)CBC W/ DIFFERENTIAL* You were discharged from [facility] on 04/19/2022 17:50 Should you have any questions prior to discharge, please contact a member of your healthcare team. If you have left the hospital and have any questions, please contact your primary care physician. Chief Complaint and Reason For Visit Chief Complaint Date of Onset RIGHT SHOULDER RTC REPAIR / BICEPS TENOD ESIS 120MIN OP Function Status Unknown or Not Available. Plan of Care Unknown or Not Available. Referral/Transition of Care Unknown or Not Available.
--- OUTSIDE RECORDS SUMMARY | 2022-12-26 08:49 | XMS_ITS | CCD ---
Author Name Unknown Address [address] [place] [address] [phone] Organization Unknown Address [address] [place] [address] [phone] Care Team Providers Care Pasteurizer Name Role Phone AVI CULLEN Attending Physician [phone] Vital Signs Unknown or Not Available. Allergies Allergy Code Allergy Type Reaction Status LISINOPRIL 06181 Drug allergy COUGH Active CEDAR SAWDUST {Clinical monitoring unavailable} 0 Drug allergy COUGHING Active Procedures Unknown or Not Available. History of Immunizations Unknown or Not Available. Problems Unknown or Not Available. Results [facility] ELISA AMBROSIOONIX* - Russ ect Date/Time: 04/17/2022 09:38 Test Name Code Test Result Test Units Test Ref Rang e Tier- 69497-0 PRE-OP N/A SARS COV2 RNA: 98298-7 NEGATIVE N/A REFERENCE RANGE: NEGAT Active Medications Unknown or Not Available. Medications Administered During Visit Unknown or Not Available. Encounters Encounter Diagnosis Diagnosis Code Start Date Pre-surgery testing [id number] 04/17/2022 Social History Smoking Status Code Start Date End Date Never smoker [id number] Patient Decision Aids Unknown or Not Available. Discharge Instructions You were admitted to [facility] on 04/17/2022 18:29 with a principal diagnosis of Encounter for preprocedural laboratory examination You had the following tests done:MILIND COVID RHEONIX* You were discharged from [facility] on 04/17/2022 18:29 Should you have any questions prior to [...]
--- OUTSIDE RECORDS SUMMARY | 2022-12-26 08:49 | XMS_ITS | CCD ---
Author Name Unknown Address [address] [place] [address] [id number] Organization Unknown Address [address] [place] [address] [phone] Care Team Providers Care Control Room Helper Name Role Phone AVI CULLEN Attending Physician [phone] AVI CULLEN Rounding (Secondary) Physician [phone] Vital Signs Unknown or Not Available. Allergies Allergy Code Allergy Type Reaction Status LISINOPRIL 29700 Drug allergy COUGH Active CEDAR SAWDUST {Clinical monitoring unavailable} 0 Drug allergy COUGHING Active Procedures Unknown or Not Available. History of Immunizations Unknown or Not Available. Problems Unknown or Not Available. Results Unknown or Not Available. Active Medications Unknown or Not Available. Medications Administered During Visit Unknown or Not Available. Encounters Encounter Diagnosis Diagnosis Code Start Date Removal of suture [id number] 04/25/2022 Social History Smoking Status Code Start Date End Date Never smoker 051556906 Patient Decision Aids Unknown or Not Available. Discharge Instructions You were admitted to [facility] on 04/25/2022 13:04 with a principal diagnosis of Encounter for removal of sutures You were discharged from [facility] on 04/25/2022 00:00 Should you have any questions prior [...]
--- OUTSIDE RECORDS SUMMARY | 2022-12-26 08:49 | XMS_ITS | CCD ---
Author Name Unknown Address [address] [place] [address] [phone] Organization Unknown Address [address] [place] [address] [phone] Care Team Providers Care Master Control Technician Name Role Phone ELINOR DEY Attending Physician [phone] ELINOR DEY Rounding (Secondary) Physician [phone] Vital Signs Unknown or Not Available. Allergies Allergy Code Allergy Type Reaction Status LISINOPRIL 41796 Drug allergy COUGH Active CEDAR SAWDUST {Clinical monitoring unavailable} 0 Drug allergy COUGHING Active Procedures Unknown or Not Available. History of Immunizations Unknown or Not Available. Problems Unknown or Not Available. Results Unknown or Not Available. Active Medications Unknown or Not Available. Medications Administered During Visit Unknown or Not Available. Encounters Encounter Diagnosis Diagnosis Code Start Date Follow-up orthopedic assessment [id number] 05/30/2022 Social History Smoking Status Code Start Date End Date Never smoker [id number] Patient Decision Aids Unknown or Not Available. Discharge Instructions You were admitted to [facility] on 05/30/2022 13:17 with a principal diagnosis of Encounter for other orthopedic aftercare You were discharged from [facility] on 05/30/2022 00:00 Should you have any questions prior [...]
[2022-12-27 09:12] LABS: Lyme Ab w Rflx to Lyme Confirm Negative (Negative)
== END 2022-12-26 08:46 | disposition home or self-care (01) ==
LOC: NCHCN 08:45
PROVIDERS: PCP Family Medicine; Visit Provider Nurse Practitioner Family
DX: T14.8XXA Other injury of unspecified body region, initial encounter (principal); W57.XXXA Bitten or stung by nonvenomous insect and other nonvenomous arthropods, initial encounter
CPT/HCPCS: 86618

== ENCOUNTER 2023-04-17 18:46 | Outpatient (REF) | payer MEDICARE, SELFPAY ==
[2023-04-17 14:55] LABS: Hemoglobin A1C 5.9 % (<5.7)
[2023-04-17 15:10] LABS: ALT 22 U/L (16-63); AST 23 U/L (15-37); Albumin 3.9 g/dL (3.4-5.0); Alkaline Phosphatase 119 U/L (46-116); Anion Gap 4.8 mmol/L (3-11); BUN 21 mg/dL (7-18); Bilirubin, Total 0.5 mg/dL (0.2-1.0); CO2 29.2 mmol/L (21.0-32.0); Calcium 9.3 mg/dL (8.5-10.1); Calculated LDL 180 mg/dL (<100); Chloride 104 mmol/L (98-107); Cholesterol 270 mg/dL (<200); Estimated GFR 81.47 (mL/min/1.73m2); Glucose 105 mg/dL (74-106); HDL Cholesterol 65 mg/dL (40-60); Potassium 4.8 mmol/L (3.5-5.1); Sodium 138 mmol/L (136-145); Total Protein 7.8 g/dL (6.4-8.2); Triglyceride 129 mg/dL (<150)
[2023-04-17 22:41] LABS: PSA, Screening 0.7 ng/mL (<=4.5)
== END 2023-04-17 18:47 | disposition home or self-care (01) ==
LOC: NCHCN 18:46
PROVIDERS: PCP Family Medicine; Visit Provider Family Medicine
DX: I10 Essential (primary) hypertension (principal); R73.03 Prediabetes; Z12.5 Encounter for screening for malignant neoplasm of prostate
CPT/HCPCS: 80053; 80061; 84153; 83036

== ENCOUNTER 2023-06-20 11:42 | Outpatient (REF) | payer MEDICARE, SELFPAY ==
[2023-06-20 15:13] LABS: ALT 33 U/L (16-63); AST 23 U/L (15-37); Albumin 3.8 g/dL (3.4-5.0); Alkaline Phosphatase 97 U/L (46-116); Anion Gap 5.4 mmol/L (3-11); BUN 25 mg/dL (7-18); Bilirubin, Total 0.7 mg/dL (0.2-1.0); CO2 29.6 mmol/L (21.0-32.0); Calcium 8.9 mg/dL (8.5-10.1); Calculated LDL 195 mg/dL (<100); Chloride 104 mmol/L (98-107); Cholesterol 289 mg/dL (<200); Estimated GFR 81.47 (mL/min/1.73m2); Glucose 98 mg/dL (74-106); HDL Cholesterol 57 mg/dL (40-60); Potassium 4.7 mmol/L (3.5-5.1); Sodium 139 mmol/L (136-145); Total Protein 7.6 g/dL (6.4-8.2); Triglyceride 188 mg/dL (<150)
== END 2023-06-20 11:43 | disposition home or self-care (01) ==
LOC: NCHCN 11:42
PROVIDERS: PCP Family Medicine; Visit Provider Family Medicine
DX: E78.5 Hyperlipidemia, unspecified (principal)
CPT/HCPCS: 80053; 80061

== ENCOUNTER 2024-04-18 09:33 | Outpatient (REF) | payer MEDICARE, SELFPAY ==
[2024-04-18 14:57] LABS: Hemoglobin A1C 5.8 % (<5.7)
[2024-04-18 15:01] LABS: ALT 32 U/L (16-63); AST 25 U/L (15-37); Albumin 3.9 g/dL (3.4-5.0); Alkaline Phosphatase 107 U/L (46-116); Anion Gap 8.7 mmol/L (3-11); BUN 24 mg/dL (7-18); Bilirubin, Total 0.54 mg/dL (0.2-1.0); CO2 26.3 mmol/L (21.0-32.0); Calcium 9.1 mg/dL (8.5-10.1); Calculated LDL 115 mg/dL (<100); Chloride 105 mmol/L (98-107); Cholesterol 198 mg/dL (<200); Estimated GFR 80.97 (mL/min/1.73m2); Glucose 93 mg/dL (74-106); HDL Cholesterol 66 mg/dL (40-60); Potassium 4.7 mmol/L (3.5-5.1); Sodium 140 mmol/L (136-145); Total Protein 7.8 g/dL (6.4-8.2); Triglyceride 89 mg/dL (<150)
== END 2024-04-18 09:34 | disposition home or self-care (01) ==
LOC: NCHCN 09:33
PROVIDERS: PCP Family Medicine; Visit Provider Family Medicine
DX: E78.5 Hyperlipidemia, unspecified (principal); R73.03 Prediabetes
CPT/HCPCS: 80053; 80061; 84153; 83036

== ENCOUNTER 2024-05-16 15:24 | Outpatient (REF) | payer MEDICARE, SELFPAY ==
[2024-05-19 10:08] LABS: PSA, Screening 0.6 ng/mL (<=6.5)
== END 2024-05-16 15:25 | disposition home or self-care (01) ==
LOC: NCHCN 15:24
PROVIDERS: PCP Family Medicine; Visit Provider Family Medicine
DX: Z12.5 Encounter for screening for malignant neoplasm of prostate (principal)
CPT/HCPCS: 84153

== ENCOUNTER 2025-01-29 08:52 | Outpatient (REF) | payer MEDICARE, SELFPAY ==
[2025-01-29 17:05] LABS: Hemoglobin A1C 5.8 % (<5.7)
[2025-01-29 17:42] LABS: ALT 43 U/L (16-63); AST 46 U/L (15-37); Albumin 3.8 g/dL (3.4-5.0); Alkaline Phosphatase 116 U/L (46-116); Anion Gap 6.3 mmol/L (3-11); BUN 23 mg/dL (7-18); Bilirubin, Total 0.7 mg/dL (0.2-1.0); CO2 26.7 mmol/L (21.0-32.0); Calcium 9.0 mg/dL (8.5-10.1); Calculated LDL 104 mg/dL (<100); Chloride 106 mmol/L (98-107); Cholesterol 176 mg/dL (<200); Estimated GFR 91.31 (mL/min/1.73m2); Glucose 102 mg/dL (74-106); HDL Cholesterol 60 mg/dL (>or=40); Potassium 4.7 mmol/L (3.5-5.1); Sodium 139 mmol/L (136-145); Total Protein 7.3 g/dL (6.4-8.2); Triglyceride 61 mg/dL (<150)
[2025-01-29 22:15] LABS: PSA, Screening 0.6 ng/mL (<=6.5)
== END 2025-01-29 08:53 | disposition home or self-care (01) ==
LOC: NCHCN 08:52
PROVIDERS: PCP Family Medicine; Visit Provider Family Medicine
DX: R73.03 Prediabetes (principal); I10 Essential (primary) hypertension; Z12.5 Encounter for screening for malignant neoplasm of prostate
CPT/HCPCS: 80053; 80061; 84153; 83036

== ENCOUNTER 2025-03-20 09:34 | Outpatient (REF) | payer MEDICARE, SELFPAY ==
[2025-03-20 17:09] LABS: Microalb ug/mg Crea 4.6 ug/mg Cr
== END 2025-03-20 09:35 | disposition home or self-care (01) ==
LOC: NCHCN 09:34
PROVIDERS: PCP Family Medicine; Visit Provider Family Medicine
DX: I10 Essential (primary) hypertension (principal)
CPT/HCPCS: 82043; 82570